=== PATIENT | female | born 1980 | race Two or more races ===

== ENCOUNTER 2016-04-21 19:24 | Emergency (ER) | payer OTHER ==
[~2016-04-21] VITALS: Ht 157.5 cm; Wt 52.6 kg
[2016-04-21 19:30] VITALS: BP 126/72
[2016-04-21] MEDS ORDERED: LORAZEPAM 1 MG TABLET ONE (19:43)
[2016-04-21] MEDS ORDERED: LORAZEPAM 1 MG TABLET PO ONE (20:00)
== END 2016-04-21 21:51 | disposition home or self-care (01) ==
LOC: ER 19:24
DX: F41.9 Anxiety disorder, unspecified (principal)
CPT/HCPCS: 71010; 93005; 99284; A4606; Z7610

== ENCOUNTER 2016-08-11 19:32 | Emergency (ER) | payer OTHER ==
[~2016-08-11] VITALS: Ht 162.6 cm; Wt 54.4 kg
--- NOTE | 2016-08-11 19:46 | NUR ---
PT AMBULATORY TO ER BED 11 C/O DIFFUSE ABDOMINAL PAIN R/T LOWER BACK X 3 WEEKS NOW. PT STATES SYMPTOMS STARTED AFTER PT TOOK SISTERS ANTI CHOLESTEROL MEDICATION. PLACED ON MONITOR. STABLE VITALS AWAITING MD PIKE.
--- NOTE | 2016-08-11 20:02 | NUR ---
DR NUÑEZ AT BEDSIDE FOR EVAL.
[2016-08-11 20:15] LABS: APPEARANCE,URINE Clear (CLEAR); BILIRUBIN,URINE Negative (NEGATIVE); BLOOD, URINE Negative Ery/uL (NEGATIVE); COLOR,URINE Yellow (YELLOW); KETONES,URINE 15 (NEGATIVE); LEUKOCYTE ESTERASE ,URINE Negative (NEGATIVE); NITRITE, URINE Negative (NEGATIVE); PROTEIN,URINE Negative (NEGATIVE); UGLUCOSE Negative (NEGATIVE); UROBILINOGEN,URINE 0.2 EU/dL (0.2)
[2016-08-11] MEDS ORDERED: IV SET PRIMARY 1 EA INFUS.SET MC ONE (20:18)
[2016-08-11] MEDS ORDERED: IV NS 0.9% 1,000 ML ONE (20:18)
[2016-08-11] MEDS ORDERED: ONDANSETRON HCL/PF 4 MG/2 ML VIAL ONE (20:18)
--- NOTE | 2016-08-11 20:18 | NUR ---
IV LINE STARTED BLOOD DRAWN AND SENT TO LAB.
[2016-08-11 20:22] LABS: BASOPHILS % (AUTO) 0.6 % (0.0-2.0); EOSINOPHILS # (AUTO) 0.2 /CMM (0.0-0.7); HEMATOCRIT 36 % (33-45); HEMOGLOBIN 12.1 g/dL (11.5-14.8); LYMPHOCYTES # (AUTO) 2.5 /CMM (0.8-4.8); MEAN CORPUSCULAR HEMOGLOBIN 29 PG (26.0-33.0); MEAN CORPUSCULAR HGB CONC 34 g/dl (31.0-36.0); MEAN CORPUSCULAR VOLUME 84 fL (82-100); MONOCYTES # (AUTO) 0.4 /CMM (0.1-1.30); MONOCYTES % (AUTO) 5.6 % (2.0-12.0); NEUTROPHILS # (AUTO) 4.8 /CMM (1.8-8.9); NEUTROPHILS % (AUTO) 59.8 % (43.0-81.0); PLATELET COUNT (AUTO) 192 /CMM (150-450); RDW COEFFICIENT OF VARIATION 12.2 (11.5-15.0); RED BLOOD CELL COUNT(AUTO) 4.25 MIL/uL (4.0-5.2); WHITE BLOOD COUNT (AUTO) 7.9 K/uL (4.3-11.0)
[2016-08-11] MEDS ORDERED: ONDANSETRON HCL/PF 4 MG/2 ML VIAL IVP ONE (20:30)
[2016-08-11] MEDS ORDERED: IV NS 0.9% 1,000 ML BAG IV ONE (20:30)
[2016-08-11 20:38] LABS: BILIRUBIN,DIRECT 0.1 mg/dL (0.0-0.2); BILIRUBIN,TOTAL 0.3 mg/dL (0.2-1.0); CREATININE 0.9 mg/dL (0.6-1.3); TOTAL PROTEIN, SERUM 7.2 g/dL (6.4-8.2)
--- NOTE | 2016-08-11 21:25 | NUR ---
Patient discharged to home in stable condition. Written and verbal after care instructions given. Patient verbalizes understanding of instruction.IV removed. Catheter intact and site benign. Pressure and 4x4 applied to site. No bleeding noted.
[2016-08-11 21:46] VITALS: BP 132/84
== END 2016-08-11 21:47 | disposition home or self-care (01) ==
LOC: ER 19:32
DX: R10.84 Generalized abdominal pain (principal)
CPT/HCPCS: 36415; 80048; 80076; 81001; 83690; 84703; 85025; 96374; 99284; A4606; J2405; J7030; Z7610; 81000-TC

== ENCOUNTER 2020-03-08 16:53 | Emergency (ER) | payer OTHER ==
[~2020-03-08] VITALS: Ht 162.6 cm; Wt 52.2 kg
[2020-03-08 17:11] VITALS: BP 117/65
== END 2020-03-08 18:07 | disposition home or self-care (01) ==
LOC: ER 16:57
DX: R07.81 Pleurodynia (principal); Z98.890 Other specified postprocedural states
CPT/HCPCS: 71100-TC

== ENCOUNTER 2020-08-10 11:27 | Emergency (ER) | payer OTHER ==
[~2020-08-10] VITALS: Ht 157.5 cm; Wt 53.5 kg
[2020-08-10 11:36] VITALS: BP 110/68
[2020-08-10] MEDS ORDERED: KETOROLAC TROMETHAMINE INJ 30 MG/ML VIAL IM ONE (12:00)
[2020-08-10] MEDS ORDERED: KETOROLAC TROMETHAMINE INJ 30 MG/ML VIAL ONE (12:06)
== END 2020-08-10 12:12 | disposition home or self-care (01) ==
LOC: ER 11:30
DX: M54.42 Lumbago with sciatica, left side (principal); Z98.890 Other specified postprocedural states
CPT/HCPCS: 96372; 99283; J1885

== ENCOUNTER 2020-09-18 21:37 | Emergency (ER) | payer OTHER ==
[~2020-09-18] VITALS: Ht 160 cm; Wt 52.2 kg
[2020-09-18 21:50] VITALS: BP 119/69
[2020-09-18] MEDS ORDERED: DEXAMETHASONE SOD PHOSPHATE 4 MG/ML VIAL IM ONE (22:00)
[2020-09-18] MEDS ORDERED: CYCLOBENZAPRINE 10 MG TABLET PO ONE (22:00)
[2020-09-18] MEDS ORDERED: KETOROLAC TROMETHAMINE INJ 60 MG/2 ML VIAL IM ONE ×2 (22:00→22:14)
--- NOTE | 2020-09-18 22:13 | NUR ---
URINE COLLECTED AND SENT TO THE LAB.
[2020-09-18] MEDS ORDERED: CYCLOBENZAPRINE 10 MG TABLET ONE (22:14)
[2020-09-18] MEDS ORDERED: DEXAMETHASONE SOD PHOSPHATE 10 MG/ML VIAL ONE (22:14)
[2020-09-18 22:35] LABS: BILIRUBIN,URINE NEGATIVE (NEGATIVE); COLOR,URINE YELLOW (YELLOW); LEUKOCYTE ESTERASE ,URINE NEGATIVE (NEGATIVE); NITRITE, URINE NEGATIVE (NEGATIVE); PROTEIN,URINE NEGATIVE (NEGATIVE); UGLUCOSE NEGATIVE (NEGATIVE); UROBILINOGEN,URINE 0.2 EU/dL (0.2)
[2020-09-18] MEDS ORDERED: CYCL5TAB PO (22:40)
[2020-09-18] MEDS ORDERED: NAPR-1009 PO (22:40)
[2020-09-18 22:41] LABS: BACTERIA,URINE Few /HPF (None Seen); SQUAMOUS EPITHELIAL CELL,UR Few /HPF (None Seen)
--- NOTE | 2020-09-18 22:47 | NUR ---
Patient discharged to home in stable condition. Written and verbal after care instructions given. Patient verbalizes understanding of instruction.
== END 2020-09-18 22:47 | disposition home or self-care (01) ==
LOC: ER 21:44
DX: M54.42 Lumbago with sciatica, left side (principal); Z98.890 Other specified postprocedural states; Z79.899 Other long term (current) drug therapy
CPT/HCPCS: 81001; 84703; 87086; 96372 ×2; 99284; J1100; J1885

== ENCOUNTER 2020-11-08 22:22 | Emergency (ER) | payer OTHER ==
[~2020-11-08] VITALS: Ht 157.5 cm; Wt 59.0 kg
[~2020-11-08 22:22] MED LIST: CYCL5TAB PO; NAPR-1009 PO
--- NOTE | 2020-11-08 23:34 | NUR ---
PT AAOX4. BIBDAUGHTER C/O LEFT FLANK PAIN X2 HRS AGO "I MADE A WRONG MOVEMENT". ER MD AT BEDSIDE FOR EVAL. AWAITING ORDERS.
[2020-11-08] MEDS ORDERED: KETOROLAC TROMETHAMINE INJ 30 MG/ML VIAL ONE (23:47)
[2020-11-08] MEDS ORDERED: CYCLOBENZAPRINE 10 MG TABLET ONE (23:47)
[2020-11-08] MEDS ORDERED: ONDANSETRON HCL/PF 4 MG/2 ML VIAL ONE (23:47)
[2020-11-08] MEDS: CYCLOBENZAPRINE 10 MG TABLET PO ONE (23:53)
[2020-11-08] MEDS: ONDANSETRON HCL/PF - ER 4 MG/2 ML VIAL IM ONE (23:53)
[2020-11-08] MEDS: KETOROLAC TROMETHAMINE INJ 30 MG/ML VIAL IM ONE (23:53)
[2020-11-09] MEDS ORDERED: CYCL5TAB PO (00:32)
[2020-11-09] MEDS ORDERED: ONDA4TAB11 PO (00:32)
[2020-11-09] MEDS ORDERED: IBUP-1957 PO (00:32)
[2020-11-09 00:52] VITALS: BP 130/72
--- NOTE | 2020-11-09 00:52 | NUR ---
Patient discharged to home in stable condition. Written and verbal after care instructions given. Patient verbalizes understanding of instruction and RX. Pt ambulated out of ED.
== END 2020-11-09 00:53 | disposition home or self-care (01) ==
LOC: ER 22:30
DX: S39.012A Strain of muscle, fascia and tendon of lower back, initial encounter (principal); A05.9 Bacterial foodborne intoxication, unspecified; Z98.890 Other specified postprocedural states; Z79.899 Other long term (current) drug therapy; X58.XXXA Exposure to other specified factors, initial encounter; Y93.89 Activity, other specified; Y92.89 Other specified places as the place of occurrence of the external cause; Y99.8 Other external cause status
CPT/HCPCS: 96372 ×2; 99284; J1885; J2405 ×2

== ENCOUNTER 2021-02-27 18:39 | Emergency (ER) | payer OTHER ==
[~2021-02-27] VITALS: Ht 160 cm; Wt 52.2 kg
[~2021-02-27 18:39] MED LIST changes: +IBUP-1957 PO; +ONDA4TAB11 PO
--- NOTE | 2021-02-27 18:40 | NUR ---
AAOX3, BIB FAMILY C/O WORSENING SOB FOR MORE THAT A WEEK, HJS4=426% ON RA. RESP IS SLIGHTLY LABORED. SKIN IS WARM AND DRY. SPEAKS IN FULL SENTENCES. PLACED ON PROPERTY CARETAKER AND WILL CONTINUOUSLY MONITOR. AWAITING MD FOR EVAL.
--- NOTE | 2021-02-27 18:45 | NUR ---
DR GILLESPIE AT BS FOR EVAL.
--- NOTE | 2021-02-27 19:05 | NUR ---
Report given to MARYCRUZ Ho for FRANK.
[2021-02-27] MEDS ORDERED: LORAZEPAM INJ 2 MG/ML VIAL ONE (19:19)
[2021-02-27] MEDS ORDERED: LORAZEPAM INJ 2 MG/ML VIAL IV ONE (19:30)
[2021-02-27 19:34] LABS: BASOPHILS # (AUTO) 0.1 K/uL (0.0-0.2); EOSINOPHILS % (AUTO) 1.7 % (0.0-6.0); HEMATOCRIT 36 % (33-45); LYMPHOCYTES # (AUTO) 2.9 K/uL (0.8-4.8); LYMPHOCYTES % (AUTO) 40.4 % (20.0-44.0); MEAN CORPUSCULAR HGB CONC 33 g/dl (31.0-36.0); MEAN CORPUSCULAR VOLUME 86 fL (82-100); MONOCYTES # (AUTO) 0.4 K/uL (0.1-1.30); MONOCYTES % (AUTO) 6.1 % (2.0-12.0); NEUTROPHILS # (AUTO) 3.7 K/uL (1.8-8.9); NEUTROPHILS % (AUTO) 50.8 % (43.0-81.0); PLATELET COUNT (AUTO) 210 K/uL (150-450); RED BLOOD CELL COUNT(AUTO) 4.25 MIL/uL (4.0-5.2); WHITE BLOOD COUNT (AUTO) 7.3 K/uL (4.3-11.0)
--- NOTE | 2021-02-27 19:34 | NUR ---
AMBULATED TO THE RESTROOM TO PROVIDE URINE SAMPLE.
[2021-02-27 19:54] LABS: CALCIUM, SERUM 8.7 mg/dL (8.5-10.1); CARBON DIOXIDE 23 mmol/L (21-32); CHLORIDE 105 mmol/L (98-107); CREATININE 0.9 mg/dL (0.6-1.3); GLUCOSE 87 mg/dL (74-106); POTASSIUM 3.8 mmol/L (3.5-5.1); SODIUM SERUM 140 mmol/L (136-145); UREA NITROGEN, BLOOD 17 mg/dL (7-18)
[2021-02-27] MEDS ORDERED: LORAZEPAM 1 MG TABLET ONE (20:20)
[2021-02-27] MEDS ORDERED: LORAZEPAM 1 MG TABLET PO ONE (20:30)
--- NOTE | 2021-02-27 20:49 | NUR ---
Patient discharged to home in stable condition. Written and verbal after care instructions given. Patient verbalizes understanding of instruction. PT ambulatory with a steady gait
[2021-02-27 20:55] VITALS: BP 125/88
== END 2021-02-27 20:55 | disposition home or self-care (01) ==
LOC: ER 18:41
DX: F41.0 Panic disorder [episodic paroxysmal anxiety] (principal); Z98.890 Other specified postprocedural states; Z90.49 Acquired absence of other specified parts of digestive tract
CPT/HCPCS: 36415; 71045; 80048; 84484; 84703; 85025; 93005; 96374; 99285; J2060

== ENCOUNTER 2021-04-09 18:11 | Emergency (ER) | payer OTHER ==
[~2021-04-09] VITALS: Ht 160 cm; Wt 52.2 kg
[2021-04-09 18:44] VITALS: BP 122/73
[2021-04-09] MEDS ORDERED: DEXAMETHASONE SOD PHOSPHATE 4 MG/ML VIAL IM ONE (19:00)
[2021-04-09] MEDS ORDERED: KETOROLAC TROMETHAMINE INJ 60 MG/2 ML VIAL IM ONE (19:00)
[2021-04-09] MEDS ORDERED: DEXAMETHASONE SOD PHOSPHATE 10 MG/ML VIAL ONE (19:19)
[2021-04-09] MEDS ORDERED: KETOROLAC TROMETHAMINE INJ 30 MG/ML VIAL ONE (19:19)
[2021-04-09] MEDS ORDERED: CYCL10TA9 PO (19:22)
[2021-04-09] MEDS ORDERED: NAPR500T6 PO (19:22)
--- NOTE | 2021-04-09 19:28 | NUR ---
Patient discharged to home in stable condition. Written and verbal after care instructions given. Patient verbalizes understanding of instruction.
--- NOTE | 2021-04-09 19:29 | NUR ---
Patient discharged to home in stable condition. Written and verbal after care instructions given. Patient verbalizes understanding of instruction.
== END 2021-04-09 19:29 | disposition home or self-care (01) ==
LOC: ER 18:12
DX: M54.16 Radiculopathy, lumbar region (principal); M51.36 Other intervertebral disc degeneration, lumbar region; Z98.890 Other specified postprocedural states; Z79.899 Other long term (current) drug therapy
CPT/HCPCS: 96372 ×2; 99284; J1100; J1885

== ENCOUNTER 2021-06-11 22:58 | Emergency (ER) | payer OTHER ==
[~2021-06-11] VITALS: Ht 160 cm; Wt 51.7 kg
[~2021-06-11 22:58] MED LIST changes: +CYCL10TA9 PO; +NAPR500T6 PO
[2021-06-11] MEDS ORDERED: KETOROLAC TROMETHAMINE INJ 30 MG/ML VIAL ONE (23:59)
[2021-06-11] MEDS ORDERED: CYCLOBENZAPRINE 10 MG TABLET ONE (23:59)
[2021-06-12] MEDS: KETOROLAC TROMETHAMINE INJ 30 MG/ML VIAL IM ONE (00:08)
[2021-06-12] MEDS: CYCLOBENZAPRINE 10 MG TABLET PO ONE (00:09)
[2021-06-12 00:58] VITALS: BP 110/60
[2021-06-12] MEDS ORDERED: CYCL5TAB PO (01:00)
[2021-06-12] MEDS ORDERED: HYDR-4209 PO (01:00)
[2021-06-12] MEDS ORDERED: IBUP-1957 PO (01:00)
== END 2021-06-12 01:05 | disposition home or self-care (01) ==
LOC: ER 22:58
DX: M51.17 Intervertebral disc disorders with radiculopathy, lumbosacral region (principal); Z87.39 Personal history of other diseases of the musculoskeletal system and connective tissue; Z98.891 History of uterine scar from previous surgery; Z79.891 Long term (current) use of opiate analgesic; Z79.1 Long term (current) use of non-steroidal anti-inflammatories (NSAID); Z79.899 Other long term (current) drug therapy
CPT/HCPCS: 96372; 99283; J1885

== ENCOUNTER 2021-07-03 15:39 | Emergency (ER) | payer OTHER ==
[~2021-07-03] VITALS: Ht 160 cm; Wt 53.5 kg
[~2021-07-03 15:39] MED LIST changes: +HYDR-4209 PO
--- NOTE | 2021-07-03 15:53 | NUR ---
CAMILLA BEAULIEU NP AT FOR EVAL.
--- NOTE | 2021-07-03 15:54 | NUR ---
AAOX4, C/O WORSENING LOWER BACK PAIN, DENIES RECENT INJURY. RESP IS EVEN AND UNLABORED WITH NO APPARENT DISTRESS NOTED. AWAITING MD FOR EVAL.
[2021-07-03] MEDS ORDERED: KETOROLAC TROMETHAMINE INJ 60 MG/2 ML VIAL IM ONE (16:00)
[2021-07-03] MEDS ORDERED: CYCLOBENZAPRINE 10 MG TABLET PO ONE (16:00)
[2021-07-03] MEDS ORDERED: CYCLOBENZAPRINE 10 MG TABLET ONE (16:07)
[2021-07-03] MEDS ORDERED: KETOROLAC TROMETHAMINE INJ 30 MG/ML VIAL ONE (16:07)
--- NOTE | 2021-07-03 16:12 | NUR ---
PATIENT VERBALIZE THAT SHE IS NOT OK TO TAKE TORADOL.
[2021-07-03] MEDS ORDERED: ACET-907 PO (16:30)
[2021-07-03 16:39] VITALS: BP 120/75
== END 2021-07-03 16:40 | disposition home or self-care (01) ==
LOC: ER 15:40
DX: M54.40 Lumbago with sciatica, unspecified side (principal); Z98.890 Other specified postprocedural states; Z79.899 Other long term (current) drug therapy
CPT/HCPCS: 96372; 99283; J1885

== ENCOUNTER 2021-10-23 15:41 | Emergency (ER) | payer OTHER ==
[~2021-10-23] VITALS: Ht 160 cm; Wt 51.7 kg
[~2021-10-23 15:41] MED LIST changes: +ACET-907 PO
[2021-10-23 15:57] VITALS: BP 108/69
--- NOTE | 2021-10-23 16:00 | NUR ---
BIBS FOR C/O CHRONIC BACK PAIN 01/13 GOT WORSE X 3 DAYS. WILL CONTINUE TO MONITOR THE PATIENT.
[2021-10-23] MEDS ORDERED: KETOROLAC TROMETHAMINE INJ 60 MG/2 ML VIAL IM ONE (16:30)
[2021-10-23] MEDS ORDERED: KETOROLAC TROMETHAMINE INJ 30 MG/ML VIAL ONE (16:48)
--- NOTE | 2021-10-23 16:54 | NUR ---
THE PATIENT SIGNED WAIVER AFTER PROVIDING EDUCATION
[2021-10-23] MEDS ORDERED: HYDR-3972 PO (17:02)
--- NOTE | 2021-10-23 17:11 | NUR ---
Patient discharged to home in stable condition. Written and verbal after care instructions given. Patient verbalizes understanding of instruction.
== END 2021-10-23 17:11 | disposition home or self-care (01) ==
LOC: ER 15:55
DX: M54.42 Lumbago with sciatica, left side (principal); M54.41 Lumbago with sciatica, right side; Z87.39 Personal history of other diseases of the musculoskeletal system and connective tissue; Z79.899 Other long term (current) drug therapy
CPT/HCPCS: 99283; 96372; J1885